=== PATIENT | male | born 1975 | race Caucasian/White ===

== ENCOUNTER 2021-06-14 02:37 | Observation (INO) | payer MEDICARE ==
[2021-06-14] MEDS ORDERED: Nitroglycerin 0.4 MG TAB (25 Tab Bottle) SL PRN (03:02)
[2021-06-14] MEDS ORDERED: Senokot S 8.6-50 MG TAB PO PRN (03:02)
[2021-06-14] MEDS ORDERED: Calcium Carbonate 500 MG ChewTAB PO PRN (03:02)
[2021-06-14 03:13] VITALS: BMI 34.0
[2021-06-14] MEDS ORDERED: Carvedilol 3.125 MG TAB PO SCH (03:15)
[2021-06-14] MEDS ORDERED: Nitroglycerin 2% Ointment 1 INCH/1 GM Packet TOP SCH (03:15)
[2021-06-14 05:53] LABS: Anion Gap 16 mmol/L (10-20); BUN (Urea Nitrogen) 15 mg/dL (8.9-20.6); Calc. Creatinine Clearance 94 mL/min (70-130); Calcium 9.3 mg/dL (7.8-10.44); Carbon Dioxide 21 mmol/L (22-29); Cardiac Risk 6.5 (Less than 4.5); Chloride 107 mmol/L (98-107); Cholesterol 195 mg/dl (< 200 Desired); Glucose 146 mg/dL (70-105); HDL Cholesterol 30 mg/dL (>60 Neg Risk); LDL Cholesterol, Calculated 133 mg/dL; Potassium 4.2 mmol/L (3.5-5.1); Sodium 140 mmol/L (136-145); Triglycerides 162 mg/dL (Less than 150)
[2021-06-14 06:02] LABS: Troponin I 0.038 ng/mL (< 0.028)
[2021-06-14 06:41] LABS: Troponin I 0.044 ng/mL (< 0.028)
[2021-06-14] MEDS: Acetaminophen 325 MG TAB PO PRN ×2 (06:49→14:42)
[2021-06-14] MEDS: Carvedilol 3.125 MG TAB PO SCH ×2 (08:14→20:27)
[2021-06-14] MEDS: Aspirin Chewable 81 MG TAB PO SCH (08:14)
[2021-06-14] MEDS: Furosemide 40 MG TAB PO SCH (08:14)
[2021-06-14] MEDS: Lisinopril 5 MG TAB PO SCH (08:14)
[2021-06-14] MEDS: Spironolactone 25 MG TAB PO SCH (08:15)
[2021-06-14] MEDS: Ondansetron PF 4 MG/2 ML Vial IVP PRN ×2 (14:40→20:27)
[2021-06-14] MEDS: Apixaban 5 MG TAB PO SCH ×2 (15:41→20:27)
[2021-06-14] MEDS: Clopidogrel Bisulfate 75 MG TAB PO SCH (15:42)
[2021-06-14] MEDS: Prazosin HCl 1 MG CAP PO SCH (20:27)
[2021-06-14] MEDS: Atorvastatin Calcium 40 MG TAB PO SCH (20:27)
[2021-06-14] MEDS: Ubidecarenone 50 MG CAP PO SCH (20:27)
[2021-06-14] MEDS: Mirtazapine 15 MG TAB PO SCH (20:27)
[2021-06-15] MEDS: HYDROcodone/Acetaminophen 5/325 mg Tablet PO PRN ×2 (00:14→20:58)
[2021-06-15] MEDS: Clopidogrel Bisulfate 75 MG TAB PO SCH (10:14)
[2021-06-15] MEDS: Carvedilol 3.125 MG TAB PO SCH ×2 (10:14→20:56)
[2021-06-15] MEDS: Spironolactone 25 MG TAB PO SCH (10:14)
[2021-06-15] MEDS: Lisinopril 5 MG TAB PO SCH (10:14)
[2021-06-15] MEDS: Aspirin Chewable 81 MG TAB PO SCH (10:15)
[2021-06-15] MEDS: Furosemide 40 MG TAB PO SCH (10:15)
[2021-06-15] MEDS: Apixaban 5 MG TAB PO SCH ×2 (10:35→20:56)
[2021-06-15 18:33] LABS: SARS-CoV-2 NAA Rapid Test DETECTED (NotDetected)
[2021-06-15] MEDS: Atorvastatin Calcium 40 MG TAB PO SCH (20:56)
[2021-06-15] MEDS: Mirtazapine 15 MG TAB PO SCH (20:56)
[2021-06-15] MEDS: Ubidecarenone 50 MG CAP PO SCH (20:57)
[2021-06-15] MEDS: Prazosin HCl 1 MG CAP PO SCH (20:58)
[2021-06-16] MEDS: Aspirin Chewable 81 MG TAB PO SCH (09:57)
[2021-06-16] MEDS: Lisinopril 5 MG TAB PO SCH (09:58)
[2021-06-16] MEDS: Spironolactone 25 MG TAB PO SCH (09:59)
[2021-06-16] MEDS: Furosemide 40 MG TAB PO SCH (09:59)
[2021-06-16] MEDS: Clopidogrel Bisulfate 75 MG TAB PO SCH (09:59)
[2021-06-16] MEDS: Carvedilol 3.125 MG TAB PO SCH (09:59)
[2021-06-16] MEDS: Apixaban 5 MG TAB PO SCH (09:59)
[2021-06-16 12:38] VITALS: BP 107/68; TEMP 97.5
== END 2021-06-16 14:18 ==
LOC: INTOOBSV 02:37 → CSHTELE 02:37 → EEVIPCON 02:37
PROVIDERS: ADMIT Student in an Organized Health Care Education/Training Program; ATTEND Internal Medicine
DX: R07.2 Precordial pain (principal); I16.0 Hypertensive urgency; I13.0 Hypertensive heart and chronic kidney disease with heart failure and stage 1 through stage 4 chronic kidney disease, or unspecified chronic kidney disease; N18.31 Chronic kidney disease, stage 3a; U07.1 COVID-19; I50.22 Chronic systolic (congestive) heart failure; I25.10 Atherosclerotic heart disease of native coronary artery without angina pectoris; R79.89 Other specified abnormal findings of blood chemistry; E78.5 Hyperlipidemia, unspecified; Z95.1 Presence of aortocoronary bypass graft; Z95.5 Presence of coronary angioplasty implant and graft; Z95.810 Presence of automatic (implantable) cardiac defibrillator; I25.5 Ischemic cardiomyopathy; Z86.711 Personal history of pulmonary embolism; Z79.01 Long term (current) use of anticoagulants; Z79.899 Other long term (current) drug therapy; Z79.82 Long term (current) use of aspirin; Z87.891 Personal history of nicotine dependence; M79.604 Pain in right leg; M79.605 Pain in left leg
CPT/HCPCS: 80048; 80061; 84484 ×2; 93005 ×2; 93306; 93970; 96374; 96376; G0378 ×3; U0002; 36415; 93010; J2405

== ENCOUNTER 2023-09-10 12:25 | Emergency (ER) | payer MEDICARE ==
[2023-09-10] MEDS ORDERED: Acetaminophen 500 MG TAB ONE (13:21)
== END 2023-09-10 13:25 | disposition home or self-care (01) ==
LOC: CSHERS 12:25
DX: S63.501A Unspecified sprain of right wrist, initial encounter (principal); S80.212A Abrasion, left knee, initial encounter; I11.0 Hypertensive heart disease with heart failure; I50.9 Heart failure, unspecified; I48.91 Unspecified atrial fibrillation; Z87.891 Personal history of nicotine dependence; W18.30XA Fall on same level, unspecified, initial encounter
CPT/HCPCS: 29125